=== PATIENT | female | born 1955 | race Caucasian/White ===

== ENCOUNTER 2018-03-06 11:29 | Day surgery (SDC) | payer OTHER, MEDICAID ==
[2018-03-06] MEDS ORDERED: PROPOFOL 20 ML (11:48)
== END 2018-03-06 17:27 | disposition home or self-care (01) ==
LOC: GIL 11:29
DX: K29.50 Unspecified chronic gastritis without bleeding (principal); K21.9 Gastro-esophageal reflux disease without esophagitis
CPT/HCPCS: 43239; 88305; 88312

== ENCOUNTER → 2018-09-08 | Outpatient (CLI) | payer OTHER | END | disposition home or self-care (01) | LOC: EKG 11:10 | DX: D50.8 Other iron deficiency anemias (principal) | CPT/HCPCS: 93306 ==